=== PATIENT | female | born 1945 | race Caucasian/White ===

== ENCOUNTER → 2019-10-23 12:48 | Outpatient (BNVA) | payer MEDICARE, MEDICAID, SELFPAY | PROVIDERS: Family Provider Internal Medicine; PCP Internal Medicine; Visit Provider Internal Medicine Rheumatology | DX: M79.7 Fibromyalgia (principal); M25.541 Pain in joints of right hand; M25.542 Pain in joints of left hand; R76.8 Other specified abnormal immunological findings in serum | CPT/HCPCS: 99213 ==

== ENCOUNTER 2020-07-16 15:22 | Outpatient (CLI) | payer MEDICARE, MEDICAID, SELFPAY ==
--- NOTE | 2020-07-16 15:36 | XR_ITS ---
WS: [id number] Exam: XR hip BI 2V wo/w pel [id number] Date/Time of Exam: 07/16/2020 3:36 PM Reason For Exam: PAIN PRESENT IN BOTH HIPS No fracture or dislocation. 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 The pattern is bilaterally symme trical. Amorphous calcifications in the pelvis most likely representing calcified uterine fibroid. S mall left periarticular calcification noted. Also curvilinear calcification seen along the inferior m argin of the right femoral head. Small calcifications seen along the bilateral greater trochanters t hat might be seen with calcific bursitis. XR/XR hip BI 2V wo/w pel [id number] IMPRESSION: 1. 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 2. No fracture or dislocation. 3. Small soft tissue calcification seen along the bilateral greater trochanters and might be seen with calcific bursitis.
== END 2020-07-16 15:23 | disposition home or self-care (01) ==
LOC: RAD 15:32
PROVIDERS: PCP Internal Medicine; Visit Provider Internal Medicine
DX: M25.552 Pain in left hip (principal); M25.551 Pain in right hip; M16.0 Bilateral primary osteoarthritis of hip
CPT/HCPCS: 73521

== ENCOUNTER 2020-09-03 11:59 | Outpatient (CLI) | payer MEDICARE, MEDICAID, SELFPAY ==
--- NOTE | 2020-09-03 12:05 | MM_ITS ---
WS: [id number] BILATERAL SCREENING DIGITAL MAMMOGRAM WITH CAD HISTORY: SCREENING COMPARISON: 11/30/2018 and 07/21/2017 Bilateral CC and MLO views submitted. Computer aided detection analyzed. Breast composition: There are scattered areas of fibroglandular density. No suspicious masses, microc alcifications or architectural distortion. Benign calcifications in each breast. MM/[place] [id number] IMPRESSION: BI-RADS: 2-Benign FOLLOW UP: 1 Year Follow-up
== END 2020-09-03 12:00 | disposition home or self-care (01) ==
LOC: RADSHAW 12:00
PROVIDERS: PCP Internal Medicine; Visit Provider Internal Medicine
DX: Z12.31 Encounter for screening mammogram for malignant neoplasm of breast (principal)
CPT/HCPCS: 77067

== ENCOUNTER 2021-10-07 07:58 | Outpatient (CLI) | payer MEDICARE, SELFPAY ==
--- NOTE | 2021-10-07 | US_ITS ---
WS: [id number] Complete ABDOMINAL ULTRASOUND HISTORY: ABDOMINAL DISTENSION COMPARISON: None available. Liver: 17.2 cm in length. Liver slightly enlarged. No mass or bile duct dilatation. Portal Vein: Normal hepatopetal flow with monophasic waveform. Gallbladder: Normally distended with no gallstones, wall thickening or pericholecystic fluid. Gallbladder wall thickness: 0.2 cm. Pancreas: Normal size and echogenicity. CBD: 0.4 cm. Right kidney: 11.1 cm x 4.7 cm x 3.5 cm. No mass, cortical thickening or hydronephrosis. Left kidney: 9.6 cm x 4.0 cm x 4.0 cm. No mass, cortical thickening or hydronephrosis. Spleen: Normal size and echogenicity. Abdominal aorta and IVC are within normal limits. No ascites. US/US abdomen complete* [id number] IMPRESSION: Mildly enlarged liver. No mass identified. This may be normal variant Daniel's lobe. Normal gallbladder.
== END 2021-10-07 07:59 | disposition home or self-care (01) ==
PROVIDERS: PCP Internal Medicine; Visit Provider Internal Medicine
DX: R14.0 Abdominal distension (gaseous) (principal); R16.0 Hepatomegaly, not elsewhere classified
CPT/HCPCS: 76700

== ENCOUNTER 2022-02-19 13:14 | Outpatient (CLI) | payer MEDICARE, SELFPAY ==
--- NOTE | 2022-02-19 13:20 | MM_ITS ---
WS: [id number] BILATERAL 3D TOMOSYNTHESIS DIGITAL SCREENING MAMMOGRAPHY WITH CAD CLINICAL INFORMATION: SCREENING HISTORY: Screening mammogram. No current complaints. COMPARISON: September 03, 2020 TECHNIQUE: Bilateral CC and MLO views. FINDINGS: The breasts are composed of heterogeneous fibroglandular density tissue, which can limit the detectio n of small underlying mass lesions. Punctate and lucent centered calcifications LEFT breast. No suspi cious mass, asymmetry, calcifications, or architectural distortion. No evidence of malignancy. MM/[place] [id number] IMPRESSION: BI-RADS: 2-Benign FOLLOW UP: 1 Year Follow-up Recommend return to annual screening mammography.
== END 2022-02-19 13:15 | disposition home or self-care (01) ==
LOC: RADSHAW 13:17
PROVIDERS: PCP Internal Medicine; Visit Provider Nurse Practitioner Family
DX: Z12.31 Encounter for screening mammogram for malignant neoplasm of breast (principal)
CPT/HCPCS: 77063; 77067

== ENCOUNTER 2023-01-14 15:29 | Outpatient (CLI) | payer MEDICARE, SELFPAY ==
--- NOTE | 2023-01-14 15:54 | XR_ITS ---
WS: [id number] SACROILIAC JOINTS TECHNIQUE: AP and oblique imaging is submitted. HISTORY: LUMBAGO COMPARISON: None available. Very mild narrowing and small, subtle erosions along the SI joints. No large erosion. No sclerosis. N o fusion. Joint surface is mildly irregular. Large calcified mass consistent with a fibroid. XR/XR sacroiliac jts m 3V [id number] IMPRESSION: 1. Mild bilateral irregularity and slight erosive changes involving the SI blake nts. No fusion. 2. No fractures are identified.
== END 2023-01-14 15:30 | disposition home or self-care (01) ==
PROVIDERS: PCP Internal Medicine; Visit Provider Nurse Practitioner Family
DX: M54.50 Low back pain, unspecified (principal)
CPT/HCPCS: 72202

== ENCOUNTER 2023-04-06 10:09 | Outpatient (CLI) | payer MEDICARE, SELFPAY ==
--- NOTE | 2023-04-06 12:13 | MM_ITS ---
WS: [id number] VIEWS: MLO and CC views both breasts. 3D digital tomosynthesis is also included in this exam. Comparison made with prior exam of 12/09/2014, 01/21/2016, 07/21/2017, 11/30/2018, 08/24/2020, 02/19/2022.. Findings: There was no sign of mass, architectural distortion or suspicious calcification in either breast. Th e breasts are heterogeneously dense which may obscure small masses. MM/[place] [id number] Impression: BI-RADS: 2-Benign finding. FOLLOW-UP: 1 Year Follow-up This mammogram was also analyzed by the Computer Aided Detection System R2 Imag e Labor Contractor.
== END 2023-04-06 10:10 | disposition home or self-care (01) ==
PROVIDERS: PCP Internal Medicine; Visit Provider Internal Medicine
DX: Z12.31 Encounter for screening mammogram for malignant neoplasm of breast (principal)
CPT/HCPCS: 77063; 77067

== ENCOUNTER → 2023-06-14 13:51 | Outpatient (BNVA) | payer MEDICARE, SELFPAY | PROVIDERS: PCP Internal Medicine; Visit Provider Dermatology | DX: L82.1 Other seborrheic keratosis (principal); L81.4 Other melanin hyperpigmentation; L57.8 Other skin changes due to chronic exposure to nonionizing radiation; D18.01 Hemangioma of skin and subcutaneous tissue; D23.72 Other benign neoplasm of skin of left lower limb, including hip; D23.71 Other benign neoplasm of skin of right lower limb, including hip; L82.0 Inflamed seborrheic keratosis; L57.0 Actinic keratosis | CPT/HCPCS: 11200; 17000; 17110; 99203 ==

== ENCOUNTER 2023-10-14 12:25 | Outpatient (CLI) | payer MEDICARE, SELFPAY ==
--- NOTE | 2023-10-14 12:32 | XR_ITS ---
WS: [id number] XR lumbar spine 6V w f/e [id number] REASON FOR EXAM: DEGENERATIVE DISC DZ, LUMBOSACRAL SPINE W/RADICULOPATHY FINDINGS: 5 lumbar vertebrae. Mild rotatory scoliosis convex left. Normal lordosis. Moderate compression deformity of the L4 endplate. Vertebral body was normal on a CT scan of 2014. Significant narrowing of the L5-S1 disc space with moderate endplate sclerosis and mild osteophytosis . No spondylolysis or spondylolisthesis. No abnormal shift of the lumbar vertebrae with flexion or extension. IMPRESSION: Compression deformity of the L4 vertebral body subsequent to 2015. Mild to moderate degenerative spondylosis.
== END 2023-10-14 12:26 | disposition home or self-care (01) ==
LOC: RAD 12:29
PROVIDERS: PCP Internal Medicine; Visit Provider Internal Medicine
DX: M51.17 Intervertebral disc disorders with radiculopathy, lumbosacral region (principal); M43.8X6 Other specified deforming dorsopathies, lumbar region; M47.816 Spondylosis without myelopathy or radiculopathy, lumbar region
CPT/HCPCS: 72114

== ENCOUNTER 2023-12-28 11:51 | Outpatient (CLI) | payer MEDICARE, SELFPAY ==
--- NOTE | 2023-12-28 11:56 | US_ITS ---
WS: [id number] ULTRASOUND SOFT TISSUES RIGHT elbow HISTORY: MASS/R ELBOW PAIN COMPARISON: None available. TECHNIQUE: 2-D and color Doppler imaging is submitted. No soft tissue abnormalities noted at the RIGHT elbow at the area of the palpable mass. No distortion of the soft tissues. Fascial planes are normal. IMPRESSION: Normal soft tissue ultrasound of the RIGHT elbow.
== END 2023-12-28 11:52 | disposition home or self-care (01) ==
LOC: RAD 11:52
PROVIDERS: PCP Internal Medicine; Visit Provider Nurse Practitioner Family
DX: M25.521 Pain in right elbow (principal)
CPT/HCPCS: 76882

== ENCOUNTER → 2024-01-10 10:01 | Outpatient (BNVA) | payer MEDICARE, SELFPAY | PROVIDERS: PCP Internal Medicine; Visit Provider Podiatrist Foot & Ankle Surgery | DX: L60.3 Nail dystrophy (principal) | CPT/HCPCS: 99203 ==

== ENCOUNTER → 2024-02-21 10:43 | Outpatient (BNVA) | payer MEDICARE, SELFPAY | PROVIDERS: PCP Internal Medicine; Visit Provider Podiatrist Foot & Ankle Surgery | DX: L60.3 Nail dystrophy (principal) | CPT/HCPCS: 99213 ==

== ENCOUNTER 2024-04-12 13:49 | Outpatient (CLI) | payer MEDICARE, SELFPAY ==
--- NOTE | 2024-04-12 13:52 | MM_ITS ---
WS: [id number] BILATERAL SCREENING DIGITAL TOMOSYNTHESIS MAMMOGRAM WITH CAD HISTORY: SCREENING COMPARISON: 04/06/2023, 02/19/2022 Bilateral CC and MLO views with tomosynthesis and synthetic mammography submitted. Computer aided det ection analyzed. Breast composition: There are scattered areas of fibroglandular density. No suspicious masses, microc alcifications or architectural distortion. Benign LEFT breast calcifications. MM/[place] [id number] IMPRESSION: BI-RADS: 2-Benign FOLLOW UP: 1 Year Follow-up
== END 2024-04-12 13:50 | disposition home or self-care (01) ==
LOC: RAD 13:50
PROVIDERS: PCP Internal Medicine; Visit Provider Internal Medicine
DX: Z12.31 Encounter for screening mammogram for malignant neoplasm of breast (principal); R92.323 Mammographic fibroglandular density, bilateral breasts; R92.1 Mammographic calcification found on diagnostic imaging of breast
CPT/HCPCS: 77063; 77067

== ENCOUNTER → 2024-06-14 13:25 | Outpatient (BNVA) | payer MEDICARE, SELFPAY | PROVIDERS: PCP Internal Medicine; Visit Provider Nurse Practitioner Family | DX: L57.0 Actinic keratosis (principal); L82.0 Inflamed seborrheic keratosis; L91.8 Other hypertrophic disorders of the skin; L81.4 Other melanin hyperpigmentation; L57.8 Other skin changes due to chronic exposure to nonionizing radiation; L82.1 Other seborrheic keratosis; D18.01 Hemangioma of skin and subcutaneous tissue; D23.72 Other benign neoplasm of skin of left lower limb, including hip; D23.71 Other benign neoplasm of skin of right lower limb, including hip | CPT/HCPCS: 17000; 17110; 99213 ==

== ENCOUNTER 2024-06-20 10:22 | Outpatient (CLI) | payer MEDICARE, SELFPAY ==
--- NOTE | 2024-06-20 10:27 | XR_ITS ---
WS: [id number] Exam: XR ankle LT min 3V* [id number] Date/Time of Exam: 06/20/2024 10:31 AM Reason For Exam: LEFT ANKLE PAIN No acute fracture or dislocation. The ankle mortise is intact. Lateral soft tissue swelling. XR/XR ankle LT min 3V* [id number] IMPRESSION: 1. Lateral soft tissue swelling-no acute fracture.
== END 2024-06-20 10:23 | disposition home or self-care (01) ==
PROVIDERS: PCP Internal Medicine; Visit Provider Nurse Practitioner Family
DX: M25.572 Pain in left ankle and joints of left foot (principal); M25.472 Effusion, left ankle
CPT/HCPCS: 73610

== ENCOUNTER → 2024-08-08 13:23 | Outpatient (BNVA) | payer MEDICARE, SELFPAY | PROVIDERS: PCP Internal Medicine; Visit Provider Podiatrist Foot & Ankle Surgery | DX: L60.3 Nail dystrophy; S93.402A Sprain of unspecified ligament of left ankle, initial encounter; X50.9XXA Other and unspecified overexertion or strenuous movements or postures, initial encounter | CPT/HCPCS: 73610; 99213 ==

== ENCOUNTER → 2025-01-31 10:16 | Outpatient (BNVA) | payer MEDICARE, SELFPAY | PROVIDERS: PCP Internal Medicine; Visit Provider Nurse Practitioner Family | DX: F42.4 Excoriation (skin-picking) disorder (principal); L82.1 Other seborrheic keratosis; L81.4 Other melanin hyperpigmentation; D18.01 Hemangioma of skin and subcutaneous tissue; L57.8 Other skin changes due to chronic exposure to nonionizing radiation; L82.0 Inflamed seborrheic keratosis; L29.89 Other pruritus; R20.9 Unspecified disturbances of skin sensation; R20.8 Other disturbances of skin sensation; L53.8 Other specified erythematous conditions | CPT/HCPCS: 17110; 99213 ==

== ENCOUNTER 2025-03-19 16:10 | Emergency (ER) | payer MEDICARE, SELFPAY ==
[2025-03-19] VITALS (9 sets, daily range): BP systolic 132–147; BP diastolic 57–98; PULSE 56–79; RESP 9–16; TEMP 36.6; O2SAT 93–99
--- OUTSIDE RECORDS SUMMARY | 2025-03-19 16:16 | XMS_ITS | Encounter Summary ---
Author Organization [facility] Address [address] [place] [address] Care Team Providers Care Auto Body Worker Name Role Phone Unavailable Primary Care Provider Unavailabl e Encounter Details Date Type Department Care Team (Latest Contact Info) Description 10/23/2002 Outpatient Historical HIS [facility] Kvng Park MD [address] [place] [address] CHRONIC AIRWAY OBSTRUCTION NEC (CMS/[facility]) (Primary Dx) Social History Tobacco Use Types Packs/Day Years Used Date Smoking Tobacco: Never Assessed Comments Unknown Sex and Gender Information Value Date Recorded Sex Assigned at Not on file Legal 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
--- OUTSIDE RECORDS SUMMARY | 2025-03-19 16:16 | XMS_ITS | Encounter Summary ---
Author Organization [facility] Address [address] [place] [address] Care Team Providers Care Peoplesoft Analyst Name Role Phone Unavailable Primary Care Provider Unavailabl e Encounter Details Date Type Department Care Team (Latest Contact Info) Description 02/25/2003 Outpatient Historical HIS [facility] Kvng Prak MD [address] [place] [address] SCREENING-ENDOC/NUT/ MET/IMMUN OTHER (Primary Dx); SCREENING-LIPOID DISORDERS Social History Tobacco Use Types Packs/Day Years Used Date Smoking Tobacco: Never Assessed Comments Unknown Sex and Gender Information Value Date Recorded Sex Assigned at Not on file 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
--- OUTSIDE RECORDS SUMMARY | 2025-03-19 16:16 | XMS_ITS | Encounter Summary ---
Author Organization [facility] Address [address] [place] [address] Care Team Providers Care Pre Owned Sales Consultant Name Role Phone Unavailable Primary Care Provider Unavailabl e Encounter Details Date Type Department Care Team (Latest Contact Info) Description 03/01/2003 Outpatient Historical HIS [facility] Kvng Park MD [address] [place] [address] CARPAL TUNNEL SYNDROME (Primary Dx); HYPERLIPIDEMIA NEC/NOS; OSTEOARTHROS NOS-UNSPEC; Other Counseling Social History Tobacco Use Types Packs/Day Years Used Date Smoking Tobacco: Never Assessed Comments Unknown Sex and Gender Information Value Date Recorded Sex Assigned at Not on file 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
--- OUTSIDE RECORDS SUMMARY | 2025-03-19 16:16 | XMS_ITS | Encounter Summary ---
Author Organization [facility] Address [address] [place] [address] Care Team Providers Care Machine Binding Folder Name Role Phone Unavailable Primary Care Provider Unavailabl e Encounter Details Date Type Department Care Team (Latest Contact Info) Description 08/26/1999 Outpatient Historical HIS [facility] Shakeel Paulino NO ADDRESS ON FILE Acute maxillary sinusitis (Primary Dx) Social History Tobacco Use Types Packs/Day Years Used Date Smoking Tobacco: Never Assessed Comments Unknown Sex and Gender Information Value Date Recorded Sex Assigned at Not on file Legal Sex Female 3:31 AM MARKETING LIAISON Gender Identity Not on file Sexual Orientation Not on file documented as of this encounter Plan of Treatment Not on file documented as of this encounter Visit Diagnoses Diagnosis Acute maxillary sinusitis- Primary documented in this encounter
--- OUTSIDE RECORDS SUMMARY | 2025-03-19 16:16 | XMS_ITS | Encounter Summary ---
Author Organization [facility] Address [address] [place] [address] Care Team Providers Care Refractory Repairer Name Role Phone Unavailable Primary Care Provider Unavailabl e Encounter Details Date Type Department Care Team (Latest Contact Info) Description 09/15/1999 Outpatient Historical HIS [facility] Shakeel Paulino NO ADDRESS ON FILE Routine medical exam (Primary Dx); Gynecologic examination; Screening for malignant neoplasm of the cervix; Need for prophylactic hormone replacement therapy (postmenopausal) Social History Tobacco Use Types Packs/Day Years Used Date Smoking Tobacco: Never Assessed Comments Unknown Sex and Gender Information Value Date Recorded Sex Assigned at Not on file 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
--- OUTSIDE RECORDS SUMMARY | 2025-03-19 16:16 | XMS_ITS | Encounter Summary ---
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
--- OUTSIDE RECORDS SUMMARY | 2025-03-19 16:16 | XMS_ITS | Encounter Summary ---
Author Organization [facility] Address [address] [place] [address] Care Team Providers Care Folded Cloth Taper Name Role Phone Unavailable Primary Care Provider Unavailabl e Encounter Details Date Type Department Care Team (Latest Contact Info) Description 09/13/2002 Outpatient Historical HIS [facility] Kvng Park MD [address] [place], [place] [address] MUSCSKEL SYMPT LIMB NEC (Primary Dx); CHRONIC AIRWAY OBSTRUCTION NEC (CMS/[facility]) Social History Tobacco Use Types Packs/Day Years Used Date Smoking Tobacco: Never Assessed Comments Unknown Sex and Gender Information Value Date Recorded Sex Assigned at Not on file 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
--- OUTSIDE RECORDS SUMMARY | 2025-03-19 16:16 | XMS_ITS | Encounter Summary ---
Author Organization [facility] Address [address] [place] [address] Care Team Providers Care Senior Net C Developer Name Role Phone Unavailable Primary Care Provider Unavailabl e Encounter Details Date Type Department Care Team (Latest Contact Info) Description 04/11/2001 Outpatient Historical HIS [facility] Shakeel Paulino NO ADDRESS ON FILE Depressive disorder, not elsewhere classified (Primary Dx) Social History Tobacco Use Types Packs/Day Years Used Date Smoking Tobacco: Never Assessed Comments Unknown Sex and Gender Information Value Date Recorded Sex Assigned at Not on file Legal 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
--- OUTSIDE RECORDS SUMMARY | 2025-03-19 16:16 | XMS_ITS | Encounter Summary ---
Author Organization [facility] Address [address] [place] [address] Care Team Providers Care Conference Assistant Name Role Phone Unavailable Primary Care Provider Unavailabl e Encounter Details Date Type Department Care Team (Latest Contact Info) Description 11/01/2000 Outpatient Historical HIS [facility] Shakeel Paulino NO ADDRESS ON FILE Gynecologic examination (Primary Dx); Screening for malignant neoplasm of the cervix; Special screening for malignant neoplasms of other sites; Depressive disorder, not elsewhere classified Social History Tobacco Use Types Packs/Day Years Used Date Smoking Tobacco: Never Assessed Comments Unknown Sex and Gender Information Value Date Recorded Sex Assigned at Not on file Legal 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
--- OUTSIDE RECORDS SUMMARY | 2025-03-19 16:17 | XMS_ITS | Clinical Summary ---
Author Organization [facility] Address [address] 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
--- OUTSIDE RECORDS SUMMARY | 2025-03-19 16:17 | XMS_ITS | Encounter Summary ---
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
--- OUTSIDE RECORDS SUMMARY | 2025-03-19 16:17 | XMS_ITS | Encounter Summary ---
Author Organization [facility] Address [address] [place] [address] Care Team Providers Care Keno Terminal Operator Name Role Phone Unavailable Primary Care Provider Unavailabl e Encounter Details Date Type Department Care Team (Latest Contact Info) Description 12/27/2005 Outpatient Historical [facility] [place] [address] [place] [address] Russell Chaudhry MD NO ADDRESS ON FILE Palpitations (Primary Dx) Social History Tobacco Use Types Packs/Day Years Used Date Smoking Tobacco: Never Assessed Comments Unknown Sex and Gender Information Value Date Recorded Sex Assigned at Not on file Legal Sex Female 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
--- OUTSIDE RECORDS SUMMARY | 2025-03-19 16:17 | XMS_ITS | Data Portability ---
Author Organization [facility] Jorge Posadas [facility] Address [facility] [address] Care Team Providers Care Iv Technician Name Role Phone EDY BROWN Primary Care Provider Assessment No assessment recorded. Plan of Treatment Reminders Order Date Submit Date Provider Last Modified By Organization Details Last Modified Time Details Appointments None record ed. Lab None record ed. Referral None record ed. Procedures None record ed. Surgeries None record ed. Imaging None record ed. Medication Orders None record ed. Patient TargetsNo targets recorded. Patient InstructionsNo instructions recorded. Reason for Referral None Reported. Medical Equipment None Reported. Allergies Allergen ID Allergen Name Allergen Category Reaction Reaction Severity Criticality Documentation Date Start Date Code Code System Note Provider Name and Address Organization Details Recorded Time 11577 aspirin medicatio n Not available Not available Not available 04/16/2023 1191 RxNorm Comme nt: Recor ded 01/11 1:59P M by Livier harry, [employer], Offic e Visit ; Promo wong; Sagar lehman ce: *; Reaso n: Drug aller gy; ; Not Available [employer] 3 02:28:47 Medications Name Sig Start Date Stop Date Status Note LastModified by Organization Details LastModified Time sertraline active Not Available Not Av ailable Not Available omeprazole active Not Available Not Av ailable Not Available baclofen qd 10/13 completed 0; Recorded 8 1:07PM by Nichole Darling RN, Office Visit; Not Available Not Available Not Available valacyclov ir active Not Available Not Available Not Available BuSpar tid 10/13 completed 0; Recorded 8 1:07PM by Nichole Darling RN, Office Visit; Not Available Not Available Not Available gabapentin daily 10/13 completed 0; Recorded 1:07PM by Nichole Darling RN, Office Visit; Not Available Not Available Not Available Vitals Date Recorded Body height Body mass index (BMI) Body weight Oxygen saturation Oxygen saturation in Arterial blood by Pulse oximetry Heart rate Respiratory rate Body temperature Systolic blood pressure Diastolic blood pressure Provider Name and Address Organization Details Last Updated DateTime 5 162.56 cm 25.1 kg/m2 56010.4 9 g 98 % 98 % 84 /min 16 /min 98.2 [degF] 128 mm[Hg] 68 mm[Hg] Mary Herrera [facility] 5 09:37:43 Social History None recorded. Functional Status None recorded. Mental Status None recorded. Family History Nothing Reported. Medical History No medical history recorded. Gynecological HistoryNo gynecological history recorded. Obstetrics History GPAL:G 0 P 0 0 0 0 Past Encounters Encounter ID Performer Location Encounter Start Date Encounter Closed Date Diagnosis/Indication Diagnosis SNOMED-CT Code Diagnosis ICD10 Code Diagnosis Note [id number] DOUG RAMOS [facility] ([facility]) [address] [place] [id number] 10/13/2024 09:30:23 10/13/2024 10:15:44 Pain of right calf 1985237600 239793 M79.661 Stephanie's negative today. VSS. Unlikely DVT presentati on. Discussed pulled muscle from walking on uneven ground versus Doherty's cyst. Pt to monitor for now. If you develop swelling, increased pain, erythema, cp/sob then f/u. Health Concerns Section Related Observation LastModified by Organization Detai ls LastModified Time None Recorded Concern Status LastModified by Organization Details LastModified Time None Recorded Advance Directives Directive None Recorded Payers Insurance Date Sequence Insurance Name Policy Number Policy Nobles Covered Member ID Nobles Member ID Guarantor Name 10/15/2024 1 [employer] (MEDICARE REPLACEMENT/A DVANTAGE - PPO) Eri Loja [id number] Eri Loja 10/15/2024 1 *SELF PAY* Diana Loja Notes Date Note Type Note Provider Name and Address Organization Details Recorded Time 10/13/2024 text/html walk in patientpatient is here today for right lower calf pain that started hurting this morning when she woke up and it is radiating down into her right foot. [place] in the pasture yesterday. uneven ground in the pasture so thought it was a sore muscle. denies calf swelling, redness, sob, cp. ELISHA RAM[address], [address], [facility], Eri 10/15/2024 11:49:54 OBGyn Episode No OBEpisode recorded.
--- NOTE | 2025-03-19 16:26 | ECG_ITS ---
[facility] Test Date: 2025-03-19 Pat Name: Eri Loja Department: Room: Gender: Female Documentation Analyst: : 1945 Requested By: Bandar Cortes Order Number: [id number] Yvonne MD: Stevan Diaz M.D. Measurements Intervals [place] Rate: 64 P: 72 NM: 130 QRS: 46 QRSD: 66 T: 33 QT: 415 QTc: 429 Interpretive Statements SINUS RHYTHM WITH OCCASIONAL SUPRAVENTRICULAR PREMATURE COMPLEXES NONSPECIFIC ST & T-WAVE ABNORMALITY Compared to ECG 05/15/2018 12:30:52 T-wave abnormality now present Short NM interval no longer present Electronically Signed On 03-21-2025 09:31:38 CDT by Stevan Diaz M.D. [email or web address]
--- NOTE | 2025-03-19 16:40 | XRR_ITS ---
PROCEDURE INFORMATION: Exam: XR Chest Exam date and time: 03/19/2025 4:41 PM Age: 79 years old Clinical indication: Pain; Chest pressure; Additional info: Chest pain TECHNIQUE: Imaging protocol: Radiologic exam of the chest. Views: 1 view. COMPARISON: CR XR chest 2V* [id number] 04/10/2019 4:18 PM FINDINGS: Lungs: Similar pulmonary hyperinflation. Mild left basilar opacities favor atelectasis. No focal consolidation. Pleural spaces: Unremarkable. No pleural effusion. No pneumothorax. Heart/Mediastinum: Unremarkable. No cardiomegaly. Bones/joints: Unremarkable. XR/XR chest 1V portable 08475 IMPRESSION: No acute cardiopulmonary process.
--- NOTE | 2025-03-19 16:48 | W.ED.CHESTPA ---
Documented by User: Bandar Orr DO 03/21/25 06:36 HPI - Chest Pain General: Chief Complaint: Chest Pain Stated Complaint: middle shoulderblade pain / NV Time Seen by Provider: 03/19/25 16:40 History of Present Illness: 79-year-old female presents emergency room complaining of low back pain. Initial description stated complaint is mid shoulder blade pain with nausea vomiting a chief complaint of chest. There was talk to the patient that she denies ever having chest pain she was out in the yard raking leaves began to have pain in the middle of her back it made her nauseous and feel like she was going to vomit and. It persisted and she still has pain when she refers to in the lower paralumbar region on the right. She denies any associated shortness of breath or chest pain. No recent injury or fall symptoms began 2 hours ago. She has no history of coronary artery disease or arrhythmias. Associated symptoms: Deny abdominal pain, dyspnea or fever(s) Related Data Home Medications ?Medication ?Instructions ?Recorded ?Confirmed calcium acetate 668 mg (169 mg 668 mg PO TID 10/23/19 08/08/24 calcium) tablet coenzyme [id number] E 100 mg-100 cap PO DAILY 10/23/19 08/08/24 unit capsule cyanocobalamin (B12)-cobamamide tab sublingual DAILY 10/23/19 08/08/24 5,000 mcg-100 mcg sublingual tablet folic acid 400 mcg tablet 0.4 mg PO DAILY 10/23/19 08/08/24 lysine 500 mg tablet 500 mg PO DAILY 10/23/19 08/08/24 magnesium oxide 400 mg PO DAILY 10/23/19 08/08/24 nitroglycerin 0.4 mg sublingual 0.4 mg sublingual Q5M PRN 10/23/19 08/08/24 tablet (Nitrostat) potassium gluconate 595 mg (99 mg) mg PO DAILY 10/23/19 08/08/24 tablet,extended release zinc 50 mg tablet 50 mg PO DAILY 10/23/19 08/08/24 gabapentin 100 mg capsule 500 mg PO DIRECTED 03/17/21 08/08/24 sertraline 50 mg tablet (Zoloft) 75 mg PO DAILY 03/17/21 08/08/24 omeprazole 20 mg capsule,delayed ea PO 05/12/22 08/08/24 release Allergies Allergy/AdvReac Type Severity Reaction Status Date / Time aspirin AdvReac Mild Tinnitis Verified 08/08/24 13:25 Review of Systems Const: Denies: fever(s) or chills Card: Denies: chest pain Resp: Denies: dyspnea GI: Denies: abdominal pain : Denies: dysuria, urinary frequency or urinary urgency Musc: Reports: back pain; Denies: neck pain Skin/Breast: Denies: rash PFSH ED PFSH: Medical History PMR (polymyalgia rheumatica) Osteoporosis Pulmonary hypertension Chest pain Premature ventricular contraction Positive SANTY (antinuclear antibody) Arthralgia of both hands Fibromyalgia Surgical History History of tonsillectomy Family History Denies family history of Rheumatoid arthritis Lupus Social History Smoking and tobacco/nicotine status: never used tobacco/nicotine Alcohol intake: current Alcohol intake frequency: holidays/special occasions only Substance/Drug Use: never Physical Exam Const: COMMON NORMALS: no acute distress GENERAL APPEARANCE: cooperative and comfortable ORIENTATION/CONSCIOUSNESS: Yes awake, Yes oriented to person, Yes oriented to place and Yes oriented to time HENMT: COMMON NORMALS: normocephalic, atraumatic and hearing grossly normal bilaterally HEAD & SCALP: normocephalic and atraumatic Resp: COMMON NORMALS: normal respiratory effort, No retractions, No use of accessory muscles and clear to auscultation bilaterally AUSCULTATION: clear to auscultation bilaterally Cardio: COMMON NORMALS: regular rate, regular rhythm and No murmurs present (Cardio) RATE: regular rate RHYTHM: regular rhythm GI: COMMON NORMALS: Soft to palpation and No hepatosplenomegaly present AUSCULTATION: Yes normoactive bowel sounds PALPATION: Yes Soft to palpation, No Tenderness to palpation present (GI), No Guarding due to palpation present (GI) and Yes No hepatosplenomegaly present : BLADDER/KIDNEY EXAM: Yes CVA tenderness (Mild right) Back/Pelvis: GENERAL BACK: Yes CVA tenderness (Mild right) OTHER: Examination of back no skin breakdown no rash no sign of varicella. No ecchymosis no signs of direct trauma Extremity: COMMON NORMALS: normal to inspection, capillary refill normal, no clubbing, cyanosis or edema, no calf tenderness and no pedal edema Neuro: SENSORIUM/ORIENTATION: Yes oriented to person, Yes oriented to place and Yes oriented to time Skin: COMMON NORMALS: no rashes or lesions noted GENERAL SKIN EXAM: no rashes or lesions noted Course Vital Signs: Vital signs: Vital Signs Temperature 97.9 F 03/19/25 16:18 Pulse Rate 67 03/19/25 21:22 Respiratory Rate 9 L 03/19/25 16:52 Blood Pressure 132/64 03/19/25 21:22 Pulse Oximetry 97 03/19/25 21:22 Oxygen Delivery Me thod Room Air 03/19/25 20:54 MDM - Chest Pain Medical Decision Making Care signed out to Dr. Kwok at change of shift. See final notes for diagnosis and disposition. Lab Data 03/19/25 16:59 03/19/25 16:59 Radiology Impressions Chest X-Ray 03/19/25 16:40 IMPRESSION: No acute cardiopulmonary process. Abdomen/Pelvis CT 03/19/25 20:07 IMPRESSION: 1. No evidence of nephrolithiasis or obstructive uropathy. 2. Heterogeneously calcified uterine fibroid. 3. Sigmoid diverticulosis without diverticulitis. 4. Small to moderate hiatal hernia. 5. Pleural-based pulmonary micronodules bilaterally. For patients at low risk (minimal or absent history of smoking and of other known risk factors), no routine follow-up is indicated. For patients at high risk (history of smoking or of other known risk factors), consider optional CT Chest at 12 months. (Reference: Michael) REFERENCES: Akinhotaina H, et al. Guidelines for Management of Incidental Pulmonary Nodules Detected on CT Images: From the Fleischner Society 2017. Radiology. 2017;284(1):228-243. Laboratory Results WBC 7.93 10^3/uL (3.29-11.43) 03/19/25 16:59 RBC 3.98 10^6/uL (3.85-5.65) 03/19/25 16:59 Hgb 12.80 g/dL (11.27-16.99) 03/19/25 16:59 Hct 37.3 % (36-47) 03/19/25 16:59 MCV 93.7 fl (85-98) 03/19/25 16:59 MCH 32.2 pg (27-33) 03/19/25 16:59 MCHC 34.3 g/dL (30-55) 03/19/25 16:59 RDW 12.7 % (12.1-15.1) 03/19/25 16:59 Plt Count 413 10^3/cmm (157-399) H 03/19/25 16:59 MPV 9.6 fL (7.4-10.4) 03/19/25 16:59 Neut % (Auto) 67.6 % 03/19/25 16:59 Lymph % (Auto) 22.6 % 03/19/25 16:59 [place] % (Auto) 6.9 % 03/19/25 16:59 Eos % (Auto) 1.5 % 03/19/25 16:59 Baso % (Auto) 1.0 % 03/19/25 16:59 Neut # (Auto) 5.36 10^3/uL (1.8-7.7) 03/19/25 16:59 Lymph # (Auto) 1.8 10^3/uL (0.8-4.8) 03/19/25 16:59 [place] # (Auto) 0.6 10^3/uL (0.2-0.9) 03/19/25 16:59 Eos # (Auto) 0.1 10^3/uL (0.0-0.8) 03/19/25 16:59 Baso # (Auto) 0.1 10^3/uL (0.0-0.1) 03/19/25 16:59 Nucleated RBC % (auto) 0 % 03/19/25 16:59 Nucleated RBCs # 0.0 /100WBC 03/19/25 16:59 Sodium 134 mmol/L (136-145) L 03/19/25 16:59 Potassium 4.3 mmol/L (3.5-5.1) 03/19/25 16:59 Chloride 99 mmol/L (98-107) 03/19/25 16:59 Carbon Dioxide 20 mmol/L (22-29) L 03/19/25 16:59 Anion Gap 19.3 (5-19) H 03/19/25 16:59 BUN 14 mg/dL (8-23) 03/19/25 16:59 Creatinine 0.7 mg/dL (0.5-0.9) 03/19/25 16:59 GFR Calculation Not Reportable 03/19/25 16:59 Glucose 126 mg/dL (65-115) H 03/19/25 16:59 Calculated Osmolality 280 mOsm/kg (285-295) L 03/19/25 16:59 Calcium 9.0 mg/dL (8.5-10.5) 03/19/25 16:59 Total Bilirubin 0.2 mg/dL (0.15-1.2) 03/19/25 16:59 AST 21 U/L (0-32) 03/19/25 16:59 ALT 19 U/L (0-33) 03/19/25 16:59 Alkaline Phosphatase 100 U/L (35-105) 03/19/25 16:59 Troponin T Baseline 14 ng/L (0-10) H 03/19/25 16:59 Troponin T 120 Minute 11.55 ng/L (0-10) H 03/19/25 18:49 Delta Troponin T -2.45 ABS# (0-10) L 03/19/25 18:49 Total Protein 7.0 g/dL (6.6-8.7) 03/19/25 16:59 Albumin 4.4 g/dL (3.5-5.2) 03/19/25 16:59 Globulin 2.6 g/dL (1.3-4.6) 03/19/25 16:59 All radiology interpretation(s) finalized by discharge Discharge Plan Discharge Patient Disposition: Home Clinical Impression: Acute right flank pain, Light-headedness Condition: Stable Prescriptions: No Action omeprazole 20 mg capsule,delayed release(DR/EC) PO nitroglycerin [Nitrostat] 0.4 mg tablet, sublingual 0.4 mg SUBLINGUAL Q5M PRN magnesium oxide 400 mg magnesium capsule 400 mg PO DAILY coenzyme M69-sovdqzz E 100-100 mg-unit capsule PO DAILY calcium acetate 668 mg (169 mg calcium) tablet 668 mg PO TID cyanocobalamin-cobamamide 5,000-100 mcg tablet, sublingual SUBLINGUAL DAILY folic acid 400 mcg tablet 0.4 mg PO DAILY potassium gluconate 595 mg (99 mg) tablet extended release PO DAILY zinc 50 mg tablet 50 mg PO DAILY lysine 500 mg tablet 500 mg PO DAILY sertraline [Zoloft] 50 mg tablet 75 mg PO DAILY gabapentin 100 mg capsule 500 mg PO DIRECTED Rx Instructions: 2 tabs at noon and 3 tabs HS Discharge Orders: Discharge ED (Routine); Ordered 03/19/25 Ordered By: Morris Kwok Referrals: Jory Rojas MD [Primary Care Provider, Internal Medicine] Discharge Diet: Usual diet Discharge Activity: Resume usual activity Patient Instructions: Lightheadedness (ED), Flank Pain (ED), Patient Portal & Ligia Instructions Activity Restrictions/Additional Instructions: All of your tests today were reassuring. EKG shows that your heart is safe. CT scan shows normal kidneys without kidney stone. Blood work is reassuring. Is safe to resume normal medication and activity as previous. Print Language: Faroese Coding Level of Care Code ED Septic Tank Servicer for Chg Fwd Documented by User: Morris Kwok MD 03/19/25 20:11 HPI - Chest Pain General: Chief Complaint: Chest Pain Stated Complaint: middle shoulderblade pain / NV Time Seen by Provider: 03/19/25 16:40 Related Data Home Medications ?Medication ?Instructions ?Recorded ?Confirmed calcium acetate 668 mg (169 mg 668 mg PO TID 10/23/19 08/08/24 calcium) tablet coenzyme S81-srmccox E 100 mg-100 cap PO DAILY 10/23/19 08/08/24 unit capsule cyanocobalamin (B12)-cobamamide tab sublingual DAILY 10/23/19 08/08/24 5,000 mcg-100 mcg sublingual tablet folic acid 400 mcg tablet 0.4 mg PO DAILY 10/23/19 08/08/24 lysine 500 mg tablet 500 mg PO DAILY 02/04/20 11/20/24 magnesium oxide 400 mg PO DAILY 10/23/19 08/08/24 nitroglycerin 0.4 mg sublingual 0.4 mg sublingual Q5M PRN 10/23/19 08/08/24 tablet (Nitrostat) potassium gluconate 595 mg (99 mg) mg PO DAILY 10/23/19 08/08/24 tablet,extended release zinc 50 mg tablet 50 mg PO DAILY 10/23/19 08/08/24 gabapentin 100 mg capsule 500 mg PO DIRECTED 03/17/21 08/08/24 sertraline 50 mg tablet (Zoloft) 75 mg PO DAILY 03/17/21 08/08/24 omeprazole 20 mg capsule,delayed ea PO 05/12/22 08/08/24 release Allergies Allergy/AdvReac Type Severity Reaction Status Date / Time aspirin AdvReac Mild Tinnitis Verified 08/08/24 13:25 [facility] ED PFSH: Medical History PMR (polymyalgia rheumatica) Osteoporosis Pulmonary hypertension Chest pain Premature ventricular contraction Positive SANTY (antinuclear antibody) Arthralgia of both hands Fibromyalgia Surgical History History of tonsillectomy Family History Denies family history of Rheumatoid arthritis Lupus Social History Smoking and tobacco/nicotine status: never used tobacco/nicotine Alcohol intake: current Alcohol intake frequency: holidays/special occasions only Substance/Drug Use: never Course Vital Signs: Vital signs: Vital Signs Temperature 97.9 F 03/19/25 16:18 Pulse Rate 67 03/19/25 21:22 Respiratory Rate 9 L 03/19/25 16:52 Blood Pressure 132/64 03/19/25 21:22 Pulse Oximetry 97 03/19/25 21:22 Oxygen Delivery Me thod Room Air 03/19/25 20:54 MDM - Chest Pain Lab Data 03/19/25 16:59 03/19/25 16:59 Radiology Impressions Chest X-Ray 03/19/25 16:40 IMPRESSION: No acute cardiopulmonary process. Abdomen/Pelvis CT 03/19/25 20:07 IMPRESSION: 1. No evidence of nephrolithiasis or obstructive uropathy. 2. Heterogeneously calcified uterine fibroid. 3. Sigmoid diverticulosis without diverticulitis. 4. Small to moderate hiatal hernia. 5. Pleural-based pulmonary micronodules bilaterally. For patients at low risk (minimal or absent history of smoking and of other known risk factors), no routine follow-up is indicated. For patients at high risk (history of smoking or of other known risk factors), consider optional CT Chest at 12 months. (Reference: Michael) REFERENCES: Michael Flores, et al. Guidelines for Management of Incidental Pulmonary Nodules Detected on CT Images: From the Fleischner Society 2017. Radiology. 2017;284(1):228-243. Laboratory Results WBC 7.93 10^3/uL (3.29-11.43) 03/19/25 16:59 RBC 3.98 10^6/uL (3.85-5.65) 03/19/25 16:59 Hgb 12.80 g/dL (11.27-16.99) 03/19/25 16:59 Hct 37.3 % (36-47) 03/19/25 16:59 MCV 93.7 fl (85-98) 03/19/25 16:59 MCH 32.2 pg (27-33) 03/19/25 16:59 MCHC 34.3 g/dL (30-55) 03/19/25 16:59 RDW 12.7 % (12.1-15.1) 03/19/25 16:59 Plt Count 413 10^3/cmm (157-399) H 03/19/25 16:59 MPV 9.6 fL (7.4-10.4) 03/19/25 16:59 Neut % (Auto) 67.6 % 03/19/25 16:59 Lymph % (Auto) 22.6 % 03/19/25 16:59 [place] % (Auto) 6.9 % 03/19/25 16:59 Eos % (Auto) 1.5 % 03/19/25 16:59 Baso % (Auto) 1.0 % 03/19/25 16:59 Neut # (Auto) 5.36 10^3/uL (1.8-7.7) 03/19/25 16:59 Lymph # (Auto) 1.8 10^3/uL (0.8-4.8) 03/19/25 16:59 [place] # (Auto) 0.6 10^3/uL (0.2-0.9) 03/19/25 16:59 Eos # (Auto) 0.1 10^3/uL (0.0-0.8) 03/19/25 16:59 Baso # (Auto) 0.1 10^3/uL (0.0-0.1) 03/19/25 16:59 Nucleated RBC % (auto) 0 % 03/19/25 16:59 Nucleated RBCs # 0.0 /100WBC 03/19/25 16:59 Sodium 134 mmol/L (136-145) L 03/19/25 16:59 Potassium 4.3 mmol/L (3.5-5.1) 03/19/25 16:59 Chloride 99 mmol/L (98-107) 03/19/25 16:59 Carbon Dioxide 20 mmol/L (22-29) L 03/19/25 16:59 Anion Gap 19.3 (5-19) H 03/19/25 16:59 BUN 14 mg/dL (8-23) 03/19/25 16:59 Creatinine 0.7 mg/dL (0.5-0.9) 03/19/25 16:59 GFR Calculation Not Reportable 03/19/25 16:59 Glucose 126 mg/dL (65-115) H 03/19/25 16:59 Calculated Osmolality 280 mOsm/kg (285-295) L 03/19/25 16:59 Calcium 9.0 mg/dL (8.5-10.5) 03/19/25 16:59 Total Bilirubin 0.2 mg/dL (0.15-1.2) 03/19/25 16:59 AST 21 U/L (0-32) 03/19/25 16:59 ALT 19 U/L (0-33) 03/19/25 16:59 Alkaline Phosphatase 100 U/L (35-105) 03/19/25 16:59 Troponin T Baseline 14 ng/L (0-10) H 03/19/25 16:59 Troponin T 120 Minute 11.55 ng/L (0-10) H 03/19/25 18:49 Delta Troponin T -2.45 ABS# (0-10) L 03/19/25 18:49 Total Protein 7.0 g/dL (6.6-8.7) 03/19/25 16:59 Albumin 4.4 g/dL (3.5-5.2) 03/19/25 16:59 Globulin 2.6 g/dL (1.3-4.6) 03/19/25 16:59 EKG Data EKG 1: Interpretation: Time?1830?sinus rhythm, rate of 60, no ST segment elevation or depression, no T wave versions, QTc = 433. EKG 2: Interpretation: Despite this being named EKG #2, this was the initial EKG performed at 1617?sinus rhythm with infrequent SPC's, rate of 64, no ST segment elevation or depression, no T wave inversions, QTc = 424. Discharge Plan Discharge Patient Disposition: Home Clinical Impression: Acute right flank pain, Light-headedness Condition: Stable Prescriptions: No Action omeprazole 20 mg capsule,delayed release(DR/EC) PO nitroglycerin [Nitrostat] 0.4 mg tablet, sublingual 0.4 mg SUBLINGUAL Q5M PRN magnesium oxide 400 mg magnesium capsule 400 mg PO DAILY coenzyme Z07-vuevjyz E 100-100 mg-unit capsule PO DAILY calcium acetate 668 mg (169 mg calcium) tablet 668 mg PO TID cyanocobalamin-cobamamide 5,000-100 mcg tablet, sublingual SUBLINGUAL DAILY folic acid 400 mcg tablet 0.4 mg PO DAILY potassium gluconate 595 mg (99 mg) tablet extended release PO DAILY zinc 50 mg tablet 50 mg PO DAILY lysine 500 mg tablet 500 mg PO DAILY sertraline [Zoloft] 50 mg tablet 75 mg PO DAILY gabapentin 100 mg capsule 500 mg PO DIRECTED Rx Instructions: 2 tabs at noon and 3 tabs HS Discharge Orders: Discharge ED (Routine); Ordered 03/19/25 Ordered By: Morris Kwok Referrals: Jory Rojas MD [Primary Care Provider, Internal Medicine] Discharge Diet: Usual diet Discharge Activity: Resume usual activity Patient Instructions: Lightheadedness (ED), Flank Pain (ED), Patient Portal & Ligia Instructions Activity Restrictions/Additional Instructions: All of your tests today were reassuring. EKG shows that your heart is safe. CT scan shows normal kidneys without kidney stone. Blood work is reassuring. Is safe to resume normal medication and activity as previous. Print Language: Faroese Coding Level of Care Code ED Septic Tank Servicer for Ramiro Holt
[2025-03-19 17:15] LABS: Hematocrit 37.3 % (36-47); Hemoglobin 12.80 g/dL (11.27-16.99); Mean Corpuscular HGB Conc 34.3 g/dL (30-55); Mean Corpuscular Hemoglobin 32.2 pg (27-33); Mean Corpuscular Volume 93.7 fl (85-98); Nucleated Red Blood Cells % 0 %; Platelet Count 413 10^3/cmm (157-399); Red Blood Count 3.98 10^6/uL (3.85-5.65); White Blood Count 7.93 10^3/uL (3.29-11.43)
[2025-03-19 17:38] LABS: Alanine Aminotransferase 19 U/L (0-33); Albumin Level 4.4 g/dL (3.5-5.2); Alkaline Phosphatase 100 U/L (35-105); Aspartate Amino Transferase 21 U/L (0-32); Blood Urea Nitrogen 14 mg/dL (8-23); Calcium 9.0 mg/dL (8.5-10.5); Carbon Dioxide 20 mmol/L (22-29); Chloride 99 mmol/L (98-107); Creatinine Clr Calc Pharmacy 53.7902; Globulin 2.6 g/dL (1.3-4.6); Glucose 126 mg/dL (65-115); Osmolality Calculated 280 mOsm/kg (285-295); Sodium 134 mmol/L (136-145); Total Protein 7.0 g/dL (6.6-8.7); Troponin(5th) Baseline 14 ng/L (0-10)
[2025-03-19] MEDS: orphenadrine 30 mg/mL Inj 2 mL 60 MG IV (17:40)
[2025-03-19 17:42] LABS: Anion Gap 19.3 (5-19); Potassium 4.3 mmol/L (3.5-5.1)
--- NOTE | 2025-03-19 18:40 | ECG_ITS ---
[facility] Date: 2025-03-19 Pat Name: Eri Loja Department: Room: Gender: Female [employer]oe [employer] Molder: : 1945 Requested By: Bandar Cortes Order Number: [id number] Yvonne MD: Stevan Diaz M.D. Measurements Intervals [place] Rate: 60 P: 70 NC: 143 QRS: 45 QRSD: 74 T: -18 QT: 433 QTc: 434 Interpretive Statements SINUS RHYTHM NONSPECIFIC ST & T-WAVE ABNORMALITY Compared to ECG 03/19/2025 16:17:40 No significant changes Electronically Signed On 03-21-2025 09:31:31 CDT by Stevan Diaz M.D. [email or web address]
[2025-03-19 19:38] LABS: Troponin 5 2HR 11.55 ng/L (0-10)
[2025-03-19 19:39] LABS: Troponin 5 2HR Delta -2.45 ABS# (0-10)
--- NOTE | 2025-03-19 20:07 | CTR_ITS ---
PROCEDURE INFORMATION: Exam: CT Abdomen And Pelvis Without Contrast Exam date and time: 03/19/2025 8:26 PM Age: 79 years old Clinical indication: Abdominal pain; Flank; Right; Additional info: Right flank pain TECHNIQUE: Imaging protocol: Computed tomography of the abdomen and pelvis without contrast. Radiation optimization: All CT scans at this facility use at least one of these dose optimization techniques: automated exposure control; mA and/or kV adjustment per patient size (includes targeted exams where dose is matched to clinical indication); or iterative reconstruction. COMPARISON: CR XR hip BI 2V wo/w pel [id number] 07/16/2020 3:39 PM RADIATION DOSE METRICS: Total DLP (mGy-cm): 448.07 FINDINGS: Lungs: Mild bibasilar atelectasis. Sub 4 mm pleural-based bilateral lower lobe nodules. Diaphragm: Small to moderate sliding-type hiatal hernia. Liver: Diffuse hepatic steatosis. Likely focal fatty sparing along the gallbladder fossa. Gallbladder and biliary ducts: Normal. No calcified stones. No ductal dilation. Pancreas: Normal. No ductal dilation. Spleen: Normal. No splenomegaly. Adrenal glands: Normal. No mass. Kidneys and ureters: Normal. No hydronephrosis. Stomach and bowel: Sigmoid diverticulosis without evidence of acute diverticulitis. No evidence of bowel obstruction. Appendix: No evidence of appendicitis. Intraperitoneal space: Unremarkable. No free air. No significant fluid collection. Vasculature: Mild atherosclerotic aortoiliac calcifications. No abdominal aortic aneurysm. Lymph nodes: Unremarkable. No enlarged lymph nodes. Urinary bladder: Unremarkable as visualized. Reproductive: Heterogeneously calcified uterine fibroid. Bones/joints: Unremarkable. No acute fracture. Soft tissues: Unremarkable. CT/CT kidney stone [id number] IMPRESSION: 1. No evidence of nephrolithiasis or obstructive uropathy. 2. Heterogeneously calcified uterine fibroid. 3. Sigmoid diverticulosis without diverticulitis. 4. Small to moderate hiatal hernia. 5. Pleural-based pulmonary micronodules bilaterally. For patients at low risk (minimal or absent history of smoking and of other known risk factors), no routine follow-up is indicated. For patients at high risk (history of smoking or of other known risk factors), consider optional CT Chest at 12 months. (Reference: Michael) REFERENCES: Michael Flores et al. Guidelines for Management of Incidental Pulmonary Nodules Detected on CT Images: From the Fleischner Society 2017. Radiology. 2017;284(1):228-243.
== END 2025-03-19 21:31 | disposition home or self-care (01) ==
PROVIDERS: Family Medicine; Emergency Provider Student in an Organized Health Care Education/Training Program; PCP Internal Medicine
DX: R10.9 Unspecified abdominal pain (principal); R42 Dizziness and giddiness
CPT/HCPCS: 36415; 71045; 74176; 80053; 84484; 85025; 93005; 96374; 96375; 99285; J1100; J1885; J2360; J9999

== ENCOUNTER 2025-04-23 13:25 | Outpatient (CLI) | payer MEDICARE, SELFPAY ==
--- NOTE | 2025-04-23 13:31 | MM_ITS ---
WS: [id number] BILATERAL 3D TOMOSYNTHESIS DIGITAL SCREENING MAMMOGRAPHY WITH CAD CLINICAL INFORMATION: SCREENING HISTORY: Screening mammogram. No current complaints. COMPARISON: 2023 TECHNIQUE: Bilateral CC and MLO views. FINDINGS: The breasts are composed of heterogeneous fibroglandular density tissue, which can limit the detection of small underlying mass lesions. No suspicious mass, asymmetry, calcifications, or architectural distortion. No evidence of malignancy. Benign calcifications LEFT breast. Vascular calcifications. MM/MM [facility] tomosynthesis [id number] IMPRESSION: DENSITY: The breasts are heterogeneously dense, which may obscure small masses. BI-RADS: 2 - Benign FOLLOW UP: 1 Year Follow-up Recommend return to annual screening mammography.
== END 2025-04-23 13:26 | disposition home or self-care (01) ==
LOC: RAD 13:27
PROVIDERS: PCP Internal Medicine; Visit Provider Internal Medicine
DX: Z12.31 Encounter for screening mammogram for malignant neoplasm of breast (principal); R92.323 Mammographic fibroglandular density, bilateral breasts; R92.333 Mammographic heterogeneous density, bilateral breasts; R92.1 Mammographic calcification found on diagnostic imaging of breast
CPT/HCPCS: 77063; 77067

== ENCOUNTER 2025-06-12 07:15 | Outpatient (CLI) | payer MEDICARE, SELFPAY ==
--- NOTE | 2025-06-12 07:24 | US_ITS ---
WS: [id number] Complete ABDOMINAL ULTRASOUND HISTORY: ABDOMINAL DISTENSION COMPARISON: 10/07/2021, CT 03/19/2025 Liver: 17.9 cm in length. Liver is mildly enlarged. Coarse echotexture throughout. Surface of the liver slightly nodular suggesting cirrhosis. Portal Vein: Normal hepatopetal flow with monophasic waveform. Gallbladder: Normally distended gallbladder with no stones or wall thickening. CBD: 0.3 cm Pancreas: Normal size and echogenicity. Right kidney: 10.6 cm x 3.9 x 4.0 cm. Cortex:0.8 cm. Normal size kidney with mild thinning of the renal cortex. No hydronephrosis or mass. Left kidney: 9.6 cm x 4.7 cm x 4.6 cm. Cortex: 0.9 cm. Normal size kidney with mild thinning of the renal cortex. No hydronephrosis or mass. Spleen: 8.7 cm. Normal size and echogenicity. Aorta and IVC: Unremarkable abdominal aorta and IVC. US/US abdomen complete* [id number] Impression: 1. Normal gallbladder. 2. No intrahepatic bile duct dilatation. 3. Liver is measuring top normal size. Surface of the liver is slightly nodula r suggesting cirrhosis. 4. No renal obstruction. 5. Mild cortical thinning of each kidney. 6. No ascites.
== END 2025-06-12 07:16 | disposition home or self-care (01) ==
LOC: RAD 07:19
PROVIDERS: PCP Internal Medicine; Visit Provider Internal Medicine
DX: R14.0 Abdominal distension (gaseous) (principal); R16.0 Hepatomegaly, not elsewhere classified
CPT/HCPCS: 76700